=== PATIENT | female | born 1985 ===

== ENCOUNTER 2020-06-30 03:57 | Inpatient (IN) ==
[2020-06-30] MEDS ORDERED: cefOXitin 2,000 MG in SYRINGE 1 EACH IV ONE (09:43)
[2020-06-30] MEDS ORDERED: KETOROLAC 15 MG/1 ML VIAL IV PRN (09:46)
[2020-06-30] MEDS ORDERED: ONDANSETRON 4 MG/2 ML VIAL IV PRN (09:56)
[2020-06-30] MEDS ORDERED: GLUCAGON 1 MG VIAL IM PRN (09:56)
[2020-06-30] MEDS ORDERED: DEXTROSE 50% 25 GM/50 ML VIAL IV PRN (09:56)
[2020-06-30] MEDS ORDERED: INDOCYANINE GREEN 25 MG VIAL IV ONE (10:00)
[2020-06-30] MEDS: SODIUM CHLORIDE 0.9% 1,000 ML IV SCH ×2 (10:45→22:54)
[2020-06-30 10:46] LABS: Albumin 3.1 G/DL (3.4-5.0); Bilirubin,Total 3.2 MG/DL (0.2-1.0); Calcium 8.4 MG/DL (8.5-10.1); Osmolality,Calculated 276.4 MOS/KG (273-304); Potassium 3.3 MMOL/L (3.5-5.1); Total Protein 7.1 G/DL (6.4-8.3)
[2020-06-30] MEDS: HYDROmorphone 2 MG/1 ML VIAL IV PRN (12:37)
[2020-06-30] MEDS ORDERED: POTASSIUM CHLORIDE 20 MEQ TABLET PO ONE (16:40)
[2020-06-30] MEDS: cefOXitin 2,000 MG in SYRINGE 1 EACH IV SCH ×2 (16:47→21:10)
[2020-07-01] MEDS: cefOXitin 2,000 MG in SYRINGE 1 EACH IV SCH ×5 (03:20→21:54)
[2020-07-01] MEDS: SODIUM CHLORIDE 0.9% 1,000 ML IV SCH (05:13)
[2020-07-01 05:57] LABS: Basophils % 0.6 % (0.0-0.8); Eosinophils # 0.1 10*3/uL (0.0-0.87); Eosinophils % 1.6 % (0.00-10.9); Hematocrit 35.5 VOL% (35.7-47.0); Hemoglobin 11.9 GM/DL (12.0-16.0); Immature Granulocytes % 0.2 %; Immature Granulocytes Absolute 0.01 #; Lymphocytes % 38.4 % (21.3-54.2); Mean Corpuscular HGB Conc 33.5 GM/DL (32-36); Mean Corpuscular Volume 85.3 FL (87-102); Mean Platelet Volume 9.6 FL (9.6-12.0); Monocytes % 5.7 % (1.7-12.7); Neutrophils % 53.5 % (38.7-73.9); Platelet Count 249 T/CUMM (130-400); Red Blood Count 4.16 MC/CUMM (3.8-5.5); Red Cell Distribution Width 15.6 % (9.3-17.3); White Blood Count 5.1 T/CUMM (4-12)
[2020-07-01 06:05] LABS: PT Patient Result 10.8 SECS (9.8-11.9)
[2020-07-01 06:24] LABS: Albumin 2.7 G/DL (3.4-5.0); Bilirubin,Total 1.4 MG/DL (0.2-1.0); Osmolality,Calculated 275.4 MOS/KG (273-304); Potassium 4.3 MMOL/L (3.5-5.1); Total Protein 6.5 G/DL (6.4-8.9)
[2020-07-01] MEDS ORDERED: INDOMETHACIN SUPP 50 MG SUPP RECTAL ONE (08:00)
[2020-07-01] MEDS: LACTATED RINGERS 1,000 ML IV SCH (08:41)
[2020-07-01] MEDS: hydroCHLOROthiazide 12.5 MG CAPSULE PO SCH (08:42)
[2020-07-01] MEDS: LOSARTAN 50 MG TABLET PO SCH (08:42)
[2020-07-01] MEDS: HYDROmorphone 2 MG/1 ML VIAL IV PRN (08:43)
[2020-07-01] MEDS ORDERED: INDOCYANINE GREEN 25 MG VIAL IV ONE (10:22)
[2020-07-01] MEDS ORDERED: fentaNYL 100 MCG/2 ML VIAL ONE ×2 (12:31→13:10)
[2020-07-01] MEDS ORDERED: MIDAZOLAM 2 MG/2 ML VIAL ONE (12:31)
[2020-07-01] MEDS ORDERED: SUCCINYLCHOLINE 200 MG/10 ML VIAL ONE (12:43)
[2020-07-01] MEDS ORDERED: SEVOFLURANE 1 UNIT/15 MINUTE INH ONE (13:15)
[2020-07-01] MEDS ORDERED: LIDOCAINE 2% 5 ML VIAL ONE (13:15)
[2020-07-01] MEDS ORDERED: ONDANSETRON 4 MG/2 ML VIAL ONE (13:15)
[2020-07-01] MEDS ORDERED: propofoL 200 MG/20 ML VIAL IV ONE (13:15)
[2020-07-01] MEDS ORDERED: ROCURONIUM 50 MG/5 ML VIAL IV ONE (13:15)
[2020-07-01] MEDS ORDERED: NEOSTIGMINE 10 MG/10 ML VIAL ONE (13:42)
[2020-07-01] MEDS ORDERED: GLYCOPYRROLATE 0.4 MG/2 ML VIAL ONE (13:42)
[2020-07-02] MEDS: HYDROmorphone 2 MG/1 ML VIAL IV PRN ×5 (03:12→21:34)
[2020-07-02] MEDS: SODIUM CHLORIDE 0.9% 1,000 ML IV SCH ×3 (03:17→15:24)
[2020-07-02 05:38] LABS: Basophils % 0.3 % (0.0-0.8); Eosinophils # 0.1 10*3/uL (0.0-0.87); Hematocrit 35.6 VOL% (35.7-47.0); Hemoglobin 12.2 GM/DL (12.0-16.0); Immature Granulocytes % 0.3 %; Immature Granulocytes Absolute 0.02 #; Lymphocytes # 2.2 10*3/uL (1.4-4.0); Lymphocytes % 32.5 % (21.3-54.2); Mean Corpuscular HGB Conc 34.3 GM/DL (32-36); Mean Corpuscular Volume 82.6 FL (87-102); Mean Platelet Volume 9.5 FL (9.6-12.0); Monocytes % 7.3 % (1.7-12.7); Neutrophils % 58.6 % (38.7-73.9); Platelet Count 235 T/CUMM (130-400); Red Blood Count 4.31 MC/CUMM (3.8-5.5); Red Cell Distribution Width 15.1 % (9.3-17.3); White Blood Count 6.7 T/CUMM (4-12)
[2020-07-02 06:01] LABS: Albumin 2.9 G/DL (3.4-5.0); Bilirubin,Total 1.6 MG/DL (0.2-1.0); Calcium 8.4 MG/DL (8.5-10.1); Osmolality,Calculated 272.5 MOS/KG (273-304); Potassium 3.7 MMOL/L (3.5-5.1); Total Protein 6.9 G/DL (5.0-7.5)
[2020-07-02 06:05] LABS: Albumin 2.9 G/DL (3.4-5.0); Bilirubin,Direct 0.4 MG/DL (0.0-0.20); Bilirubin,Indirect 0.9 MG/DL (0.0-1.0); Bilirubin,Total 1.3 MG/DL (0.2-1.0); Calcium 8.4 MG/DL (8.5-10.1); Osmolality,Calculated 276.3 MOS/KG (273-304); Potassium 3.8 MMOL/L (3.5-5.1); Total Protein 6.8 G/DL (5.0-7.5)
[2020-07-02] MEDS ORDERED: TISSUE ADHESIVE 1 EACH APPLICATOR TOP ONE (06:40)
[2020-07-02] MEDS ORDERED: BUPIVACAINE MPF 0.25% 30 ML VIAL ONE (06:40)
[2020-07-02] MEDS ORDERED: LIDOCAINE 1% 20 ML VIAL ONE (06:40)
[2020-07-02] MEDS ORDERED: MIDAZOLAM 2 MG/2 ML VIAL ONE (07:22)
[2020-07-02] MEDS ORDERED: fentaNYL 100 MCG/2 ML VIAL ONE ×2 (07:23→08:43)
[2020-07-02] MEDS ORDERED: propofoL 200 MG/20 ML VIAL IV ONE (07:39)
[2020-07-02] MEDS ORDERED: LIDOCAINE 2% 5 ML VIAL ONE (07:39)
[2020-07-02] MEDS ORDERED: ONDANSETRON 4 MG/2 ML VIAL ONE (07:39)
[2020-07-02] MEDS ORDERED: SEVOFLURANE 1 UNIT/15 MINUTE INH ONE ×4 (07:39→09:05)
[2020-07-02] MEDS ORDERED: ROCURONIUM 50 MG/5 ML VIAL IV ONE (07:39)
[2020-07-02] MEDS ORDERED: LABETALOL 20 MG/4 ML SYRINGE IV ONE (07:39)
[2020-07-02] MEDS: cefOXitin 2,000 MG in SYRINGE 1 EACH IV SCH ×4 (08:00→21:33)
[2020-07-02] MEDS ORDERED: PHENYLEPHRINE 1 MG/10 ML SYRINGE IV ONE (08:05)
[2020-07-02] MEDS ORDERED: hydrALAZINE 20 MG/1 ML VIAL ONE (08:13)
[2020-07-02] MEDS ORDERED: GLYCOPYRROLATE 0.4 MG/2 ML VIAL ONE (08:37)
[2020-07-02] MEDS ORDERED: NEOSTIGMINE 10 MG/10 ML VIAL ONE (08:37)
[2020-07-02] MEDS ORDERED: ONDANSETRON 4 MG/2 ML VIAL IV PRN (09:12)
[2020-07-02] MEDS: LACTATED RINGERS 1,000 ML IV SCH (11:33)
[2020-07-02] MEDS: LOSARTAN 50 MG TABLET PO SCH (11:48)
[2020-07-02] MEDS: hydroCHLOROthiazide 12.5 MG CAPSULE PO SCH (11:48)
[2020-07-03] MEDS: SODIUM CHLORIDE 0.9% 1,000 ML IV SCH ×2 (00:24→10:03)
[2020-07-03] MEDS: cefOXitin 2,000 MG in SYRINGE 1 EACH IV SCH ×2 (04:14→09:21)
[2020-07-03 05:34] LABS: Basophils % 0.2 % (0.0-0.8); Eosinophils % 0.3 % (0.00-10.9); Hematocrit 34.2 VOL% (35.7-47.0); Hemoglobin 11.9 GM/DL (12.0-16.0); Immature Granulocytes % 0.2 %; Immature Granulocytes Absolute 0.02 #; Lymphocytes # 1.7 10*3/uL (1.4-4.0); Mean Corpuscular HGB Conc 34.8 GM/DL (32-36); Mean Platelet Volume 9.8 FL (9.6-12.0); Monocytes % 6.6 % (1.7-12.7); Neutrophils % 72.7 % (38.7-73.9); Platelet Count 246 T/CUMM (130-400); Red Blood Count 4.12 MC/CUMM (3.8-5.5); Red Cell Distribution Width 15.4 % (9.3-17.3); White Blood Count 8.7 T/CUMM (4-12)
[2020-07-03 05:53] LABS: Albumin 2.8 G/DL (3.4-5.0); Bilirubin,Total 1.1 MG/DL (0.2-1.0); Calcium 8.3 MG/DL (8.5-10.1); Osmolality,Calculated 270.7 MOS/KG (273-304); Potassium 3.2 MMOL/L (3.5-5.1); Total Protein 6.7 G/DL (5.0-7.5)
[2020-07-03 05:56] LABS: Albumin 2.8 G/DL (3.4-5.0); Bilirubin,Direct 0.31 MG/DL (0.0-0.20); Bilirubin,Indirect 0.9 MG/DL (0.0-1.0); Bilirubin,Total 1.2 MG/DL (0.2-1.0); Calcium 8.1 MG/DL (8.5-10.1); Osmolality,Calculated 274.4 MOS/KG (273-304); Potassium 3.2 MMOL/L (3.5-5.1); Total Protein 6.8 G/DL (5.0-7.5)
[2020-07-03] MEDS: LACTATED RINGERS 1,000 ML IV SCH (07:18)
[2020-07-03] MEDS ORDERED: POTASSIUM CHLORIDE RIDER 10 MEQ in PREMIX 1 EACH IV PRN (07:48)
[2020-07-03] MEDS: hydroCHLOROthiazide 12.5 MG CAPSULE PO SCH (08:31)
[2020-07-03] MEDS: LOSARTAN 50 MG TABLET PO SCH (08:34)
[2020-07-03] MEDS: HYDROmorphone 2 MG/1 ML VIAL IV PRN (08:35)
[2020-07-03] MEDS: POTASSIUM CHLORIDE 20 MEQ TABLET PO PRN ×2 (09:20→11:39)
[2020-07-03 12:33] VITALS: BP 138/96
== END 2020-07-03 13:39 | disposition home or self-care (01) | DRG 419 ==
LOC: N.3E → SUATTDRO 06:00
PROVIDERS: ADMIT Internal Medicine; ATTEND Internal Medicine Geriatric Medicine
PROC: ERCPWSP (ICD-10-PCS; 2020-07-01 11:05)